=== PATIENT | male | born 1990 | race Two or more races ===

== ENCOUNTER 2019-11-01 18:16 | Emergency (ER) | payer MEDICAID ==
[~2019-11-01] VITALS: Ht 167.6 cm; Wt 70.3 kg
[2019-11-01 18:16] VITALS: BP 138/71
--- NOTE | 2019-11-01 18:41 | NUR ---
PT SEEN AND EXAMINED BY PRISCILLA GARCIA NP.
--- NOTE | 2019-11-01 18:52 | NUR ---
CDL B DRIVER AT BEDSIDE FOR XRAY.
--- NOTE | 2019-11-01 19:13 | NUR ---
REPORT GIVEN TO YULY ROD FOR CARA.
--- NOTE | 2019-11-01 20:39 | NUR ---
Patient discharged to home in stable condition. Written and verbal after care instructions given. Patient verbalizes understanding of instruction.pt. ambulatory with a steady gait
== END 2019-11-01 20:39 | disposition home or self-care (01) ==
LOC: ER 18:19
DX: S39.012A Strain of muscle, fascia and tendon of lower back, initial encounter (principal); V49.59XA Passenger injured in collision with other motor vehicles in traffic accident, initial encounter; Y93.89 Activity, other specified; Y92.413 State road as the place of occurrence of the external cause; Y99.8 Other external cause status
CPT/HCPCS: 72110-TC